=== PATIENT | female | born 1955 | race Caucasian/White ===

== ENCOUNTER 2018-06-05 00:50 | Emergency (ER) | payer OTHER ==
[2018-06-05] MEDS ORDERED: METO25TA23 PO (01:03)
[2018-06-05] MEDS ORDERED: ASPI-1471 PO (01:03)
[2018-06-05] MEDS ORDERED: CLOP75TA PO (01:03)
[2018-06-05] MEDS ORDERED: ASPIRIN 81 MG CHEW PO ONE (01:10)
--- NOTE | 2018-06-05 01:11 | EKG ---
FACILITY: [facility] PATIENT NAME: YENI ROBLERO : [id number] MR: [id number] V: [id number] EXAM DATE: ORDERING PHYSICIAN: ABIGAIL PEREZ TECHNOLOGIST: SEVEN Test Reason : CP Blood Pressure : / mmHG Vent. Rate : 068 BPM Atrial Rate : 068 BPM P-R Int : 192 ms QRS Dur : 080 ms QT Int : 404 ms P-R-T Axes : 027 -30 030 degrees QTc Int : 429 ms Normal sinus rhythm Left axis deviation Low voltage QRS Abnormal ECG No previous ECGs available Confirmed by RY GIFFORD ([id number]) on 06/05/2018 1:23:49 AM Referred By: CHRIS Confirmed By:RY GIFFORD
[2018-06-05 01:31] LABS: PLATELET COUNT, AUTOMATED 220 K/uL (150-450)
--- NOTE | 2018-06-05 01:39 | RADIOLOGY IMAGING REPORT ---
FACILITY: [facility] PATIENT NAME: Roopa Gant : 1955 MR: [id number] V: [id number] EXAM DATE: ORDERING PHYSICIAN: ABIGAIL PEREZ TECHNOLOGIST: Location: [facility] Patient: Roopa Gant : 1955 Visit/Account:[id number] Date of Sevice: 06/05/2018 CHEST SINGLE AP 06/05/2018 01:08 hours. HISTORY: Chest pain. COMPARISON: None. TECHNIQUE: Portable AP view of the chest. FINDINGS: Tubes/lines/hardware: There are external chest leads. Pulmonary/pleura: Lungs are clear. There is no pneumothorax or pleural effusion. Cardiomediastinal: Cardiac and mediastinal silhouettes are within normal limits. Bones/soft tissues: No acute osseous abnormality. Benign-appearing sclerosis of the greater tuberosit y of the humerus, potentially a benign enostosis. The visible abdomen is normal. IMPRESSION: 1. No acute cardiopulmonary process. Report Dictated By: Meg Phoenix at 06/05/2018 1:33 AM Report E-Signed By: Meg Phoenix at 06/05/2018 1:35 AM WSN:[id number]
--- NOTE | 2018-06-05 01:48 | ER Report ---
History and Physical Time Seen By MD: 00:59 Hx. of Stated Complaint: PT REPORTS CHEST PAIN AROUND AN HOUR AGO. HX OF HEART ATTACK AND CARDIAC. HPI/ROS CHIEF COMPLAINT: Chest pain HISTORY OF PRESENT ILLNESS: This is a 62-year-old female. She started having some chest pain within the last hour or so, 3 sharp pains intermittently that are gone now but she is left with a heavy feeling in her chest. Took a nitroglycerin sublingual and the pain went away. 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 She denies any shortness of breath. She denies any acid reflux or heartburn. No nausea or vomiting. She does have a history of a heart attack in the past, but no stents. No fevers or chills, has had some cough. Allergies: Coded Allergies: No Known Drug Allergies (Unverified , 06/05/18) Home Meds Reported Medications Metoprolol Succinate (METOPROLOL SUCCINATE) 25 Mg Tab.er.24h, 1 TAB PO QDAY, TAB 06/05/18 Aspirin (ASPIR 81) 81 Mg Tablet.dr, 81 MG PO QDAY, TAB 06/05/18 Clopidogrel Bisulfate (CLOPIDOGREL) 75 Mg Tablet, 1 TAB PO QDAY, TAB 06/05/18 Reviewed Nurses Notes: Yes Hx Substance Use Disorder: No Hx Alcohol Use: No Constitutional Vital Sign - Last 24 Hours 06/05/18 06/05/18 06/05/18 06/05/18 00:52 00:59 01:15 01:20 Temp 97.5 Pulse 57 58 Resp 14 8 B/P (MAP) 141/94 141/94 (110) 123/72 (89) Pulse Ox 94 96 O2 Delivery Room Air 06/05/18 06/05/18 06/05/18 06/05/18 01:30 01:35 01:45 01:50 Pulse 57 60 Resp 12 14 B/P (MAP) 116/72 (87) 117/73 (88) Pulse Ox 95 94 06/05/18 06/05/18 06/05/18 06/05/18 02:00 02:05 02:15 02:20 Pulse 57 55 Resp 6 22 B/P (MAP) 112/70 (84) 108/73 (85) Pulse Ox 92 92 06/05/18 06/05/18 06/05/18 06/05/18 02:30 02:45 02:50 02:50 Pulse 54 54 B/P (MAP) 115/73 (87) 114/91 (99) 06/05/18 06/05/18 06/05/18 06/05/18 03:00 03:05 03:15 03:20 Pulse 53 55 Resp 16 B/P (MAP) 114/69 (84) 118/76 (90) Pulse Ox 93 06/05/18 06/05/18 06/05/18 06/05/18 03:30 03:35 03:45 03:50 Pulse 57 53 53 Resp 9 8 B/P (MAP) 114/72 (86) Pulse Ox 93 97 06/05/18 06/05/18 06/05/18 06/05/18 04:00 04:05 04:20 04:30 Pulse 56 53 Resp 14 14 B/P (MAP) 108/73 (85) 110/68 (82) Pulse Ox 96 91 06/05/18 04:35 Pulse 56 Resp 11 Pulse Ox 94 Physical Exam General Appearance: The patient is alert. No acute distress. Non-toxic in appearance. Eyes: Pupils are equal, round. No pallor, injection or icterus. ENT: Mucous membranes are moist. Neck: Supple and non tender. Respiratory: Lungs are clear to auscultation. Cardiovascular: Regular rate and rhythm. No murmurs, gallops or rubs. Normal capillary refill. Gastrointestinal: Abdomen is soft and non tender. Nondistended. Normal active bowel sounds. Neurological: Alert and oriented x3. No focal neurologic deficits Skin: Warm and dry. No rashes. Musculoskeletal: No pain in the back or chest wall. DIFFERENTIAL DIAGNOSIS: After history and physical exam, differential diagnosis was considered for chest pain including but not limited to myocardial ischemia, pericarditis pulmonary embolus, chest wall pain, pleural inflammation and pulmonary infectious causes. Medical Decision Making Data Points Result Diagram: 06/05/18 01006/05/18 010 Laboratory Hematology Test 06/05/18 01:00 06/05/18 04:04 Red Blood Count 4.46 M/uL (4.17-5.56) Mean Corpuscular Volume 96.8 fL (80.0-96.0) Mean Corpuscular Hemoglobin 32.5 pg (26.0-33.0) Mean Corpuscular Hemoglobin Concent 33.5 g/dL (32.0-36.0) Red Cell Distribution Width 13.0 % (11.5-14.5) Mean Platelet Volume 10.6 fL (7.2-11.1) Neutrophils (%) (Auto) 41.9 % (39.4-72.5) Lymphocytes (%) (Auto) 43.3 % (17.6-49.6) Monocytes (%) (Auto) 10.9 % (4.1-12.4) Eosinophils (%) (Auto) 3.1 % (0.4-6.7) Basophils (%) (Auto) 0.8 % (0.3-1.4) Nucleated RBC Relative Count (auto) 0.1 /100WBC Neutrophils # (Auto) 2.0 K/uL (2.0-7.4) Lymphocytes # (Auto) 2.0 K/uL (1.3-3.6) Monocytes # (Auto) 0.5 K/uL (0.3-1.0) Eosinophils # (Auto) 0.1 K/uL (0.0-0.5) Basophils # (Auto) 0.0 K/uL (0.0-0.1) Nucleated RBC Absolute Count (auto) 0.00 K/uL D-Dimer Quantitative (PE/DVT) 0.40 ug/ml (0-0.50) Sodium Level 136 mmol/L (137-145) Potassium Level 3.8 mmol/L (3.5-5.0) Chloride Level 101 mmol/L (98-107) Carbon Dioxide Level 30 mmol/L (22-31) Blood Urea Nitrogen 9 mg/dl (7-18) Creatinine 0.50 mg/dl (0.52-1.04) Glomerular Filtration Rate Calc > 60.0 Random Glucose 93 mg/dl (75-110) Calcium Level 8.9 mg/dl (8.4-10.2) Total Bilirubin 0.3 mg/dl (0.2-1.3) Aspartate Amino Transf (AST/SGOT) 27 U/L (0-35) Alanine Aminotransferase (ALT/SGPT) 29 U/L (0-56) Alkaline Phosphatase 62 U/L (0-126) B-Type Natriuretic Peptide 66 pg/ml (0-100) Total Protein 7.3 g/dl (6.3-8.2) Albumin 4.4 g/dl (3.5-5.0) Troponin I < 0.012 ng/ml Chemistry Test 06/05/18 01:00 06/05/18 04:04 White Blood Count 4.7 k/uL (4.5-11.0) Red Blood Count 4.46 M/uL (4.17-5.56) Hemoglobin 14.5 g/dL (12.0-16.0) Hematocrit 43.2 % (34.0-47.0) Mean Corpuscular Volume 96.8 fL (80.0-96.0) Mean Corpuscular Hemoglobin 32.5 pg (26.0-33.0) Mean Corpuscular Hemoglobin Concent 33.5 g/dL (32.0-36.0) Red Cell Distribution Width 13.0 % (11.5-14.5) Platelet Count 220 K/uL (150-450) Mean Platelet Volume 10.6 fL (7.2-11.1) Neutrophils (%) (Auto) 41.9 % (39.4-72.5) Lymphocytes (%) (Auto) 43.3 % (17.6-49.6) Monocytes (%) (Auto) 10.9 % (4.1-12.4) Eosinophils (%) (Auto) 3.1 % (0.4-6.7) Basophils (%) (Auto) 0.8 % (0.3-1.4) Nucleated RBC Relative Count (auto) 0.1 /100WBC Neutrophils # (Auto) 2.0 K/uL (2.0-7.4) Lymphocytes # (Auto) 2.0 K/uL (1.3-3.6) Monocytes # (Auto) 0.5 K/uL (0.3-1.0) Eosinophils # (Auto) 0.1 K/uL (0.0-0.5) Basophils # (Auto) 0.0 K/uL (0.0-0.1) Nucleated RBC Absolute Count (auto) 0.00 K/uL D-Dimer Quantitative (PE/DVT) 0.40 ug/ml (0-0.50) Glomerular Filtration Rate Calc > 60.0 Calcium Level 8.9 mg/dl (8.4-10.2) Total Bilirubin 0.3 mg/dl (0.2-1.3) Aspartate Amino Transf (AST/SGOT) 27 U/L (0-35) Alanine Aminotransferase (ALT/SGPT) 29 U/L (0-56) Alkaline Phosphatase 62 U/L (0-126) B-Type Natriuretic Peptide 66 pg/ml (0-100) Total Protein 7.3 g/dl (6.3-8.2) Albumin 4.4 g/dl (3.5-5.0) Troponin I < 0.012 ng/ml Coagulation Test 06/05/18 01:00 D-Dimer Quantitative (PE/DVT) 0.40 ug/ml EKG/Imaging EKG Interpretation 12 lead EKG: Rhythm: normal sinus rhythm, rate 68 [place]: Left axis deviation QRS: Low-voltage, otherwise normal ST segments: No ST elevation or depression, nonspecific T-wave flattening throughout Imaging CHEST SINGLE AP 06/05/2018 01:08 hours. HISTORY: Chest pain. COMPARISON: None. TECHNIQUE: Portable AP view of the chest. FINDINGS: Tubes/lines/hardware: There are external chest leads. Pulmonary/pleura: Lungs are clear. There is no pneumothorax or pleural effusion. Cardiomediastinal: Cardiac and mediastinal silhouettes are within normal limits. Bones/soft tissues: No acute osseous abnormality. Benign-appearing sclerosis of the greater tuberosity of the humerus, potentially a benign enostosis. The visible abdomen is normal. IMPRESSION: 1. No acute cardiopulmonary process. Report Dictated By: Meg Phoenix at 06/05/2018 1:33 AM ED Course/Re-evaluation Clinical Indication for ER IV: IV Access ED Course Reviewed the initial labs, negative troponin and negative EKG as noted. The rest of the labs were unremarkable as well. No abnormalities noted on chest x-ray. Given her history, after discussion with the patient and her , elected to keep the patient for a repeat troponin and EKG. Repeat did not show ST elevations or depressions, but some T-wave changes. Repeat troponin is negative. No sign of AK at this time, but cannot rule out ischemia, and given her history this is a risk. She has no further pain. 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 Decision to Disposition Date: Jun 05, 2018 Decision to Disposition Time: 04:34 Depart Departure Latest Vital Signs Vital Signs Date Time Temp Pulse Resp B/P (MAP) Pulse Ox O2 Delivery O2 Flow Rate FiO2 06/05/18 04:35 56 11 94 06/05/18 04:30 110/68 (82) 06/05/18 00:52 97.5 Room Air Impression: Primary Impression: Chest pain Condition: Improved Disposition: HOME OR SELF-CARE Patient Instructions: Chest Pain (ED) Additional Instructions: The workup tonight did not reveal a dangerous cause for your chest pain. No sign of heart attack, pneumonia, blood clots, or heart failure. You could have inflammation in the chest wall, or this could be coming from the esophagus and stomach. Consider taking an antiacid medicine such as Ranitidine (Zantac) or Famotidine (Pepcid), which are over the counter medications and taken twice a day. Consider taking an anti-inflammatory temporarily, such as Ibuprofen 200mg over the counter tablets, 4 tablets three times a day with food. Follow--up with your primary care doctor for re-evaluation and consideration of needing a cardiac stress test. Problem Qualifiers Primary Impression: Chest pain Chest pain type: unspecified Qualified Codes: R07.9 - Chest pain, unspecified ABIGAIL PEREZ MD Jun 05, 2018 01:48
--- NOTE | 2018-06-05 04:14 | EKG ---
FACILITY: [facility] - [place], [place] PATIENT NAME: YENI ROBLERO : [id number] MR: [id number] V: [id number] EXAM DATE: ORDERING PHYSICIAN: ABIGAIL PEREZ TECHNOLOGIST: SEVEN Test Reason : CP Blood Pressure : / mmHG Vent. Rate : 055 BPM Atrial Rate : 055 BPM P-R Int : 192 ms QRS Dur : 084 ms QT Int : 446 ms P-R-T Axes : 010 -16 020 degrees QTc Int : 426 ms Sinus bradycardia Poor R V1-5 suggests anterior lateral infarction, age indeterminant. The ST-T changes in V3-5 are cl early new compared to previous ECG from earlier than this AM. When compared with ECG of 05-JUN-2018 01:00, See above comment on previous ECG. Confirmed by RY GIFFORD ([id number]) on 06/05/2018 5:27:13 AM Referred By: CHRIS Confirmed By:RY GIFFORD
[2018-06-05 04:30] VITALS: BP 110/68
== END 2018-06-05 04:45 | disposition home or self-care (01) ==
LOC: ER 01:12
DX: R07.89 Other chest pain (principal)
CPT/HCPCS: 71045; 82040; 82247; 82310; 82374; 82435; 82565; 82947; 83880; 84075; 84132; 84155; 84295; 84450; 84460; 84484; 84520; 85025; 85379; 93005; 99284